=== PATIENT | female | born 1970 | race Caucasian/White ===

== ENCOUNTER 2020-07-18 10:39 | Emergency (ER) | payer OTHER ==
--- NOTE | 2020-07-18 11:40 | EDM.PDOC ---
ED HPI GENERAL MEDICAL PROBLEM - General Chief Complaint: Gastrointestinal Problem Stated Complaint: BLEEDING FROM RECTUM Time Seen by Provider: 07/18/20 11:25 Source of Information: Reports: Patient History Limitations: Reports: No Limitations - History of Present Illness INITIAL COMMENTS - FREE TEXT/NARRATIVE: This 50 yo female patient reports to the ED due to several issues. The patient reports she has several broken teeth in her mouth preventing her from eating. The patient reports she did see the dentist last week, was started on Augmentin and has an appointment for extraction next Monday. The patient reports she has also had urinary frequency over the past 24 hours. The patient also reports she has had 3 bloody bowel movements today. The patient reports she does not have any previous similar episodes. The patient reports she has been taking Aleve, Tylenol and ibuprofen due to her dental pain. Onset: Today Duration: Constant Location: Reports: Abdomen (lower abdominal cramping) Quality: Reports: Ache Severity: Moderate Improves with: Reports: None Worsens with: Reports: None Context: Reports: Other Associated Symptoms: Reports: No Other Symptoms Abdominal Pain Score (Numeric/FACES): 2 - Related Data Allergies Allergy/AdvReac Type Severity Reaction Status Date / Time coconut Allergy Itching Verified 07/18/20 10:58 morphine Allergy Hives Verified 07/18/20 10:57 Home Meds: Home Meds Amoxicillin/Potassium Clav [Amox-Clav 875-125 mg Tablet] 1 tab PO BID 07/18/20 [History] Naproxen Sodium [Aleve] 440 mg PO ASDIRECTED PRN 07/18/20 [History] diphenhydrAMINE [Benadryl] 50 mg PO BID PRN 07/18/20 [History] hydroCHLOROthiazide [Hydrochlorothiazide] 12.5 mg PO DAILY 07/18/20 [History] Past Medical History HEENT History: Reports: Other (See Below) Other HEENT History: left ear plugged for 2-3 months Cardiovascular History: Reports: Hypertension Respiratory History: Reports: None Genitourinary History: Reports: None Musculoskeletal History: Reports: None Neurological History: Reports: Concussion, Head Trauma Psychiatric History: Reports: None, Depression Endocrine/Metabolic History: Reports: Obesity/BMI 30+ Hematologic History: Reports: None Immunologic History: Reports: None Oncologic (Cancer) History: Reports: None Dermatologic History: Reports: None - Infectious Disease History Infectious Disease History: Reports: Chicken Pox - Past Surgical History Head Surgeries/Procedures: Reports: None HEENT Surgical History: Reports: Tonsillectomy GI Surgical History: Reports: Bariatric Procedure Female Surgical History: Reports: Section, Endometrial Ablation Other Musculoskeletal Surgeries/Procedures:: ankles Social & Family History - Tobacco Use Tobacco Use Status *Q: Never Tobacco User Second Hand Smoke Exposure: No - Caffeine Use Caffeine Use: Reports: Soda - Recreational Drug Use Recreational Drug Use: No ED ROS GENERAL - Review of Systems Review Of Systems: Comprehensive ROS is negative, except as noted in HPI. ED EXAM, GI/ABD - Physical Exam Exam: See Below Exam Limited By: No Limitations General Appearance: Alert, WD/WN, Moderate Distress Eyes: Bilateral: Normal Appearance, EOMI Ears: Normal External Exam, Normal Canal, Hearing Grossly Normal, Normal TMs Nose: Normal Inspection, Normal Mucosa, No Blood Throat/Mouth: Normal Inspection, Normal Lips, Normal Teeth, Normal Gums, Normal Oropharynx, Normal Voice, No Airway Compromise Head: Atraumatic, Normocephalic Neck: Normal Inspection, Supple, Non-Tender, Full Range of Motion Respiratory/Chest: No Respiratory Distress, Lungs Clear, Normal Breath Sounds, No Accessory Muscle Use, Chest Non-Tender Cardiovascular: Normal Peripheral Pulses, Regular Rate, Rhythm, No Edema, No Gallop, No JVD, No Murmur, No Rub GI/Abdominal Exam: Normal Bowel Sounds, Soft, No Organomegaly, No Distention, No Abnormal Bruit, No Mass, Pelvis Stable, Tender (lower abdomen) (Female) Exam: Deferred Rectal (Female) Exam: Deferred Back Exam: Normal Inspection, Full Range of Motion, NT Extremities: Normal Inspection, Normal Range of Motion, Non-Tender, Normal Capillary Refill, No Pedal Edema Neurological: Alert, Oriented, CN II-XII Intact, Normal Cognition, Normal Gait, Normal Reflexes, No Motor/Sensory Deficits Psychiatric: Normal Affect, Normal Mood Skin Exam: Warm, Dry, Intact, Normal Color, No Rash Lymphatic: No Adenopathy Course - Vital Signs Last Recorded V/S: Last Vital Signs Temp 36.5 C 07/18/20 10:50 Pulse 136 H 07/18/20 10:50 Resp 16 07/18/20 10:50 BP 130/98 H 07/18/20 11:16 Pulse Ox 100 07/18/20 10:50 - Orders/Labs/Meds Labs: Laboratory Tests 07/18/20 07/18/20 07/18/20 Range/Units 11:12 11:37 11:37 WBC 10.7 H (5.0-10.0) 10^3/uL RBC 4.08 L (4.2-5.4) 10^6/uL Hgb 13.1 (12.0-16.0) g/dL Hct 40.1 (37.0-47.0) % MCV 98.3 (80-100) fL MCH 32.1 (27.0-34.0) pg MCHC 32.7 L (33.0-35.0) g/dL Plt Count 250 (150-450) 10^3/uL Neut % (Auto) 70.9 (42.2-75.2) % Lymph % (Auto) 16.8 L (20.5-50.1) % [place] % (Auto) 10.5 H (2-8) % Eos % (Auto) 1.2 (1.0-3.0) % Baso % (Auto) 0.6 (0.0-1.0) % Sodium 137 (136-145) mmol/L Potassium 4.8 (3.5-5.1) mmol/L Chloride 98 (98-107) mmol/L Carbon Dioxide 29 (21-32) mmol/L Anion Gap 14.8 H (7-13) mEq/L BUN 16 (7-18) mg/dL Creatinine 1.07 H (0.55-1.02) mg/dL Est Cr Clr Drug Dosing 49.20 mL/min Estimated GFR (MDRD) 54 BUN/Creatinine Ratio 15.0 (No establ ref range) Glucose 107 H (74-99) mg/dL Lactic Acid (0.4-2.0) mmol/L Calcium 9.2 (8.5-10.1) mg/dL Total Bilirubin 1.8 H (0.2-1.0) mg/dL AST 63 H (15-37) U/L ALT 53 (14-59) U/L Alkaline Phosphatase 175 H (46-116) U/L Total Protein 8.1 (6.4-8.2) g/dL Albumin 3.3 L (3.4-5.0) g/dL Globulin 4.8 Albumin/Globulin Ratio 0.69 Urine Color Dark yellow (YELLOW) Urine Appearance Clear (CLEAR) Urine pH 6.0 (5.0-9.0) Ur Specific [place] 1.020 (1.005-1.030) Urine Protein 100 H (NEGATIVE) Urine Glucose (UA) Negative (NEGATIVE) Urine Ketones Trace H (NEGATIVE) Urine Occult Blood Trace-intact H (NEGATIVE) Urine Nitrite Negative (NEGATIVE) Urine Bilirubin Small H (NEGATIVE) Urine Urobilinogen 0.2 (0.2-1.0) mg/dL Ur Leukocyte Esterase Negative (NEGATIVE) U Hyaline Cast (Auto) Moderate Urine RBC 0-5 /HPF Urine WBC 0-5 (0-5/HPF) /HPF Ur Epithelial Cells Moderate H (NOT SEEN) /HPF Urine Bacteria Few (0-FEW/HPF) /HPF Urine Mucus Few H (NOT SEEN) /LPF Urine Other See note 07/18/20 Range/Units 11:37 WBC (5.0-10.0) 10^3/uL RBC (4.2-5.4) 10^6/uL Hgb (12.0-16.0) g/dL Hct (37.0-47.0) % MCV (80-100) fL MCH (27.0-34.0) pg MCHC (33.0-35.0) g/dL Plt Count (150-450) 10^3/uL Neut % (Auto) (42.2-75.2) % Lymph % (Auto) (20.5-50.1) % [place] % (Auto) (2-8) % Eos % (Auto) (1.0-3.0) % Baso % (Auto) (0.0-1.0) % Sodium (136-145) mmol/L Potassium (3.5-5.1) mmol/L Chloride (98-107) mmol/L Carbon Dioxide (21-32) mmol/L Anion Gap (7-13) mEq/L BUN (7-18) mg/dL Creatinine (0.55-1.02) mg/dL Est Cr Clr Drug Dosing mL/min Estimated GFR (MDRD) BUN/Creatinine Ratio (No establ ref range) Glucose (74-99) mg/dL Lactic Acid 1.9 (0.4-2.0) mmol/L Calcium (8.5-10.1) mg/dL Total Bilirubin (0.2-1.0) mg/dL AST (15-37) U/L ALT (14-59) U/L Alkaline Phosphatase (46-116) U/L Total Protein (6.4-8.2) g/dL Albumin (3.4-5.0) g/dL Globulin Albumin/Globulin Ratio Urine Color (YELLOW) Urine Appearance (CLEAR) Urine pH (5.0-9.0) Ur Specific [place] (1.005-1.030) Urine Protein (NEGATIVE) Urine Glucose (UA) (NEGATIVE) Urine Ketones (NEGATIVE) Urine Occult Blood (NEGATIVE) Urine Nitrite (NEGATIVE) Urine Bilirubin (NEGATIVE) Urine Urobilinogen (0.2-1.0) mg/dL Ur Leukocyte Esterase (NEGATIVE) U Hyaline Cast (Auto) Urine RBC /HPF Urine WBC (0-5/HPF) /HPF Ur Epithelial Cells (NOT SEEN) /HPF Urine Bacteria (0-FEW/HPF) /HPF Urine Mucus (NOT SEEN) /LPF Urine Other Departure - Departure Time of Disposition: 12:31 Disposition: DC/Tfer to [facility] 02 Condition: Fair Clinical Impression: GI bleed due to NSAIDs - Discharge Information *PRESCRIPTION DRUG MONITORING PROGRAM REVIEWED*: Not Applicable *COPY OF PRESCRIPTION DRUG MONITORING REPORT IN PATIENT RAHEEM: Not Applicable Forms: Interfacility Transfer EMTALA Care Plan Goals: Discussed the patient's history, examination and lab results with Dr. Kebede (Hospitalist with [facility] in [place]). Dr. Kebede accepted the patient for continued evaluation and management. The patient will be transported by [facility]. Sepsis Event Note (ED) - Evaluation Sepsis Screening Result: No Definite Risk - Focused Exam Vital Signs: Vital Signs Temp Pulse Resp BP Pulse Ox 07/18/20 11:16 130/98 H 07/18/20 10:50 36.5 C 136 H 16 135/107 H 100
[2020-07-18 12:02] LABS: ANION GAP 14.8 mEq/L (7-13)
== END 2020-07-18 13:02 ==
LOC: DL.ED 10:39
DX: K92.2 Gastrointestinal hemorrhage, unspecified (principal); T39.395A Adverse effect of other nonsteroidal anti-inflammatory drugs [NSAID], initial encounter; I10 Essential (primary) hypertension; E66.9 Obesity, unspecified; Z68.34 Body mass index [BMI] 34.0-34.9, adult; Z88.5 Allergy status to narcotic agent; Z91.018 Allergy to other foods; Z79.899 Other long term (current) drug therapy
CPT/HCPCS: 36415; 80053; 81001; 82272; 83605; 85025; 99284

== ENCOUNTER 2021-10-11 14:18 | Emergency (ER) | payer MEDICAID, OTHER ==
[2021-10-11 17:46] LABS: ANION GAP 13.9 mEq/L (7-13)
[2021-10-11] MEDS ORDERED: Iopamidol 612 MG/ML 100 ML Bottle IVPUSH ONE (17:56)
[2021-10-11] MEDS ORDERED: Potassium Chloride Riders 50 ML ONE ×2 (19:00→20:04)
[2021-10-11] MEDS: Potassium Chloride 10 MEQ in Premix Bag 1 BAG IV ONE ×2 (19:05→19:10)
[2021-10-11] MEDS ORDERED: Sodium Chloride 0.9% 1,000 ML IV ONE (19:18)
[2021-10-11] MEDS ORDERED: Magnesium Sulfate/Water 2 GM in Premix Bag 1 BAG IV ONE (19:57)
[2021-10-11] MEDS ORDERED: Potassium Chloride 10 MEQ in Premix Bag 1 BAG IV ONE (19:57)
== END 2021-10-12 00:45 ==
LOC: DL.ED 14:18
DX: K76.89 Other specified diseases of liver (principal); D69.6 Thrombocytopenia, unspecified; E80.7 Disorder of bilirubin metabolism, unspecified; E87.6 Hypokalemia; E83.42 Hypomagnesemia; F10.10 Alcohol abuse, uncomplicated; I10 Essential (primary) hypertension; K21.9 Gastro-esophageal reflux disease without esophagitis; E66.9 Obesity, unspecified; Z91.018 Allergy to other foods; Z91.048 Other nonmedicinal substance allergy status; Z88.5 Allergy status to narcotic agent; Z20.822 Contact with and (suspected) exposure to COVID-19; Z68.34 Body mass index [BMI] 34.0-34.9, adult
CPT/HCPCS: 36415; 74177; 80053; 80143; 80307; 81003; 82140; 82150; 83605; 83690; 83735; 85025; 93005; 96365; 96366; 99285-25; J3475; J3480; J7030; Q9967; U0002

== ENCOUNTER 2021-11-13 11:11 | Emergency (ER) | payer MEDICAID | END 2021-11-13 12:36 | disposition home or self-care (01) | LOC: DL.ED 11:11 | DX: B02.9 Zoster without complications (principal); I10 Essential (primary) hypertension; K21.9 Gastro-esophageal reflux disease without esophagitis; E66.9 Obesity, unspecified; Z88.5 Allergy status to narcotic agent; Z91.018 Allergy to other foods; Z88.8 Allergy status to other drugs, medicaments and biological substances; Z79.899 Other long term (current) drug therapy; Z68.38 Body mass index [BMI] 38.0-38.9, adult | CPT/HCPCS: 99282 ==

== ENCOUNTER 2021-11-24 09:06 | Inpatient (IN) | payer MEDICAID ==
[2021-11-24] MEDS: Sodium Chloride 0.9% 10 ML Syringe FLUSH PRN ×2 (10:10→20:20)
[2021-11-24 10:28] LABS: ANION GAP 12.5 mEq/L (7-13); CHLORIDE,CL 104 mmol/L (98-107); SODIUM,NA 140 mmol/L (136-145)
[2021-11-24 10:34] LABS: ESTIMATED GFR 107 mL/min (>=60)
[2021-11-24 11:01] LABS: CORONAVIRUS COVID-19 NAA NEGATIVE (NEGATIVE)
[2021-11-24] MEDS ORDERED: Iopamidol 612 MG/ML 100 ML Bottle IVPUSH ONE (11:20)
[2021-11-24] MEDS ORDERED: Iopamidol 755 Mg/ML 100 ML Bottle IVPUSH ONE (11:32)
[2021-11-24] MEDS ORDERED: cefTRIAXone 2 GM in Sodium Chloride 0.9% 100 ML IV ONE (12:58)
[2021-11-24 14:22] LABS: AMPHETAMINES,URINE NEGATIVE (NEGATIVE); BARBITURATES,URINE NEGATIVE (NEGATIVE); BENZODIAZEPINE,URINE NEGATIVE (NEGATIVE); MDMA (ECSTASY), URINE NEGATIVE (NEGATIVE); METHADONE,URINE NEGATIVE (NEGATIVE); METHAMPHETAMINES,URINE NEGATIVE (NEGATIVE); OPIATES,URINE NEGATIVE (NEGATIVE); OXYCODONE,URINE NEGATIVE (NEGATIVE); PHENCYCLIDINE,URINE NEGATIVE (NEGATIVE); TCA,URINE NEGATIVE (NEGATIVE)
[2021-11-24] MEDS ORDERED: Zolpidem 5 MG Tab PO PRN (16:31)
[2021-11-24] MEDS ORDERED: hydrALAZINE 20 MG/ML SDV IVPUSH PRN (16:31)
[2021-11-24] MEDS ORDERED: Albuterol/Ipratropium 3.0-0.5 MG/3 ML Neb Soln NEB PRN (16:31)
[2021-11-24] MEDS ORDERED: HYDROmorphone 0.5 MG/0.5 ML Syringe IVPUSH PRN (16:31)
[2021-11-24] MEDS ORDERED: Metoprolol Tartrate 5 MG/5 ML SDV IVPUSH PRN (16:31)
[2021-11-24] MEDS ORDERED: Albumin Human 50 GM in Premix Bag 1 BAG IV ONE (16:40)
[2021-11-24] MEDS ORDERED: diphenhydrAMINE 25 MG Tab PO PRN (16:43)
[2021-11-24] MEDS: Furosemide 100 MG in Sodium Chloride 0.9% 90 ML IV SCH (17:32)
[2021-11-24] MEDS: Acetaminophen 325 MG Tab PO PRN (17:40)
[2021-11-24] MEDS ORDERED: Ampicillin/Sulbactam Na 3 GM in Sodium Chloride 0.9% 100 ML IV SCH (18:00)
[2021-11-24] MEDS ORDERED: Magnesium Sulfate/Water 2 GM in Premix Bag 1 BAG IV ONE ×2 (18:45→22:00)
[2021-11-24] MEDS: Ondansetron 4 MG/2 ML SDV IVPUSH PRN (19:57)
[2021-11-24] MEDS: Sodium Chloride 0.9% 1,000 ML IV SCH (20:09)
[2021-11-24] MEDS: Saccharomyces Boulardii (Probiotic) 250 MG Cap PO SCH (20:50)
[2021-11-24] MEDS: Spironolactone 25 MG Tab PO SCH (20:50)
[2021-11-24] MEDS: Multivitamins with Iron/Calcium/Folic Acid/Minerals Tab PO SCH (20:51)
[2021-11-24] MEDS: Thiamine 100 MG Tab PO SCH (20:51)
[2021-11-24] MEDS: Folic Acid 1 MG Tab PO SCH (20:51)
[2021-11-24] MEDS: Ampicillin/Sulbactam Na 3 GM in Sodium Chloride 0.9% 100 ML IV SCH (20:51)
[2021-11-24] MEDS ORDERED: Potassium Chloride 10 MEQ Tab.ER PO ONE (21:00)
[2021-11-24] MEDS: Promethazine 25 MG/ML SDV IM PRN (21:02)
[2021-11-25] MEDS: Ampicillin/Sulbactam Na 3 GM in Sodium Chloride 0.9% 100 ML IV SCH ×4 (02:47→20:18)
[2021-11-25] MEDS: Ondansetron 4 MG/2 ML SDV IVPUSH PRN (02:56)
[2021-11-25] MEDS: Acetaminophen 325 MG Tab PO PRN ×4 (02:57→20:16)
[2021-11-25] MEDS ORDERED: Magnesium Sulfate/Water 2 GM in Premix Bag 1 BAG IV ONE (07:28)
[2021-11-25] MEDS: Pantoprazole 40 MG Tab.CR PO SCH ×2 (07:46→16:41)
[2021-11-25] MEDS ORDERED: Phytonadione 5 MG in Sodium Chloride 0.9% 50 ML IV SCH (09:00)
[2021-11-25] MEDS: FLUoxetine 10 MG Cap PO SCH (09:03)
[2021-11-25] MEDS: Saccharomyces Boulardii (Probiotic) 250 MG Cap PO SCH ×2 (09:03→20:17)
[2021-11-25] MEDS: Phytonadione 5 MG Tab PO SCH (09:04)
[2021-11-25] MEDS: Spironolactone 25 MG Tab PO SCH ×2 (09:04→20:17)
[2021-11-25] MEDS: Enoxaparin 40 MG/0.4 ML Syringe SUBCUT SCH (09:05)
[2021-11-25] MEDS: Promethazine 25 MG/ML SDV IM PRN (09:12)
[2021-11-25] MEDS ORDERED: Gabapentin 100 MG Cap PO ONE (11:00)
[2021-11-25] MEDS: Capsaicin 0.025% Cream TOP SCH ×3 (11:15→21:22)
[2021-11-25] MEDS: Multivitamins with Iron/Calcium/Folic Acid/Minerals Tab PO SCH (20:17)
[2021-11-25] MEDS: Thiamine 100 MG Tab PO SCH (20:17)
[2021-11-25] MEDS: Gabapentin 100 MG Cap PO SCH (20:17)
[2021-11-25] MEDS: Folic Acid 1 MG Tab PO SCH (20:18)
[2021-11-25] MEDS: Melatonin 3 MG Tab PO PRN (21:20)
[2021-11-25] MEDS: Furosemide 100 MG in Sodium Chloride 0.9% 90 ML IV SCH (21:40)
[2021-11-26] MEDS: Ampicillin/Sulbactam Na 3 GM in Sodium Chloride 0.9% 100 ML IV SCH ×2 (03:06→08:01)
[2021-11-26] MEDS: Pantoprazole 40 MG Tab.CR PO SCH ×2 (05:06→15:30)
[2021-11-26] MEDS: Phytonadione 5 MG Tab PO SCH (08:02)
[2021-11-26] MEDS: Spironolactone 25 MG Tab PO SCH ×2 (08:03→21:44)
[2021-11-26] MEDS: FLUoxetine 10 MG Cap PO SCH (08:03)
[2021-11-26] MEDS: Saccharomyces Boulardii (Probiotic) 250 MG Cap PO SCH ×2 (08:03→21:44)
[2021-11-26] MEDS: Gabapentin 100 MG Cap PO SCH ×2 (08:03→21:44)
[2021-11-26] MEDS: Enoxaparin 40 MG/0.4 ML Syringe SUBCUT SCH (08:04)
[2021-11-26] MEDS: Capsaicin 0.025% Cream TOP SCH ×3 (08:04→21:59)
[2021-11-26] MEDS: Sodium Chloride 0.9% 1,000 ML IV SCH (08:09)
[2021-11-26] MEDS ORDERED: Ergocalciferol (Vitamin D2) 1.25 MG Cap PO SCH (09:00)
[2021-11-26] MEDS ORDERED: Magnesium Sulfate/Water 50 ML ONE (09:37)
[2021-11-26] MEDS: Magnesium Sulfate/Water 2 GM in Premix Bag 1 BAG IV SCH ×2 (09:44→21:52)
[2021-11-26] MEDS ORDERED: Acetaminophen/Butalbital/Caffeine 325-50-40 MG Tab ONE (09:49)
[2021-11-26] MEDS: Acetaminophen/Butalbital/Caffeine 325-50-40 MG Tab PO PRN ×2 (09:52→20:07)
[2021-11-26 12:34] LABS: ANION GAP 9.4 mEq/L (7-13)
[2021-11-26] MEDS: cefTRIAXone 1 GM in Sodium Chloride 0.9% 50 ML IV SCH (12:55)
[2021-11-26] MEDS: Potassium Chloride 10 MEQ Tab.ER PO SCH ×2 (13:31→17:58)
[2021-11-26] MEDS: Folic Acid 1 MG Tab PO SCH (21:44)
[2021-11-26] MEDS: Thiamine 100 MG Tab PO SCH (21:44)
[2021-11-26] MEDS: Multivitamins with Iron/Calcium/Folic Acid/Minerals Tab PO SCH (21:44)
[2021-11-26] MEDS: Melatonin 3 MG Tab PO PRN (21:45)
[2021-11-27] MEDS: Melatonin 3 MG Tab PO PRN (00:14)
[2021-11-27] MEDS: Pantoprazole 40 MG Tab.CR PO SCH (06:39)
[2021-11-27 06:49] LABS: ANION GAP 9.7 mEq/L (7-13)
[2021-11-27] MEDS ORDERED: Furosemide 40 MG/4 ML VIAL IVPUSH ONE (08:58)
[2021-11-27] MEDS ORDERED: Albumin Human 50 GM in Premix Bag 1 BAG IV ONE (08:58)
[2021-11-27] MEDS: Gabapentin 100 MG Cap PO SCH (09:24)
[2021-11-27] MEDS: Spironolactone 25 MG Tab PO SCH (09:24)
[2021-11-27] MEDS: FLUoxetine 10 MG Cap PO SCH (09:25)
[2021-11-27] MEDS: Enoxaparin 40 MG/0.4 ML Syringe SUBCUT SCH (09:25)
[2021-11-27] MEDS: Saccharomyces Boulardii (Probiotic) 250 MG Cap PO SCH (09:25)
[2021-11-27] MEDS: Capsaicin 0.025% Cream TOP SCH (09:26)
[2021-11-27] MEDS: Phytonadione 5 MG Tab PO SCH (09:31)
[2021-11-27] MEDS: cefTRIAXone 1 GM in Sodium Chloride 0.9% 50 ML IV SCH (14:17)
== END 2021-11-27 12:17 | disposition home or self-care (01) | DRG 432 ==
LOC: DL.ED 09:06 → DL.MS 14:26
PROVIDERS: ADMIT Internal Medicine; ATTEND Internal Medicine
DX: K70.31 Alcoholic cirrhosis of liver with ascites (principal); K65.2 Spontaneous bacterial peritonitis; K72.00 Acute and subacute hepatic failure without coma; F10.288 Alcohol dependence with other alcohol-induced disorder; N39.0 Urinary tract infection, site not specified; Z68.41 Body mass index [BMI] 40.0-44.9, adult; K72.10 Chronic hepatic failure without coma; B96.1 Klebsiella pneumoniae [K. pneumoniae] as the cause of diseases classified elsewhere; Z20.822 Contact with and (suspected) exposure to COVID-19; D53.9 Nutritional anemia, unspecified; D69.59 Other secondary thrombocytopenia; R79.1 Abnormal coagulation profile; E66.01 Morbid (severe) obesity due to excess calories; B02.9 Zoster without complications; E55.9 Vitamin D deficiency, unspecified; E88.09 Other disorders of plasma-protein metabolism, not elsewhere classified; F32.9 Major depressive disorder, single episode, unspecified; H54.7 Unspecified visual loss; K21.9 Gastro-esophageal reflux disease without esophagitis; Z88.5 Allergy status to narcotic agent; Z91.018 Allergy to other foods; Z79.52 Long term (current) use of systemic steroids; Z79.899 Other long term (current) drug therapy
CPT/HCPCS: 0240U; 36415; 51701; 51702; 51703; 71045; 71260; 74177; 80048; 80053; 80076; 80305-QW; 81001; 82150; 82306; 82607; 82746; 83690; 83735; 83880; 84207; 84425; 84436; 84443; 85025; 85379; 85610; 85651; 86140; 87086; 87088; 87186; 96365; 97165-GO; 99285-25; A9270-GY; J0295; J0696; J1650; J1940; J2405; J2550; J3475; J3490; J7030; P9047; Q9967

== ENCOUNTER 2022-02-27 22:34 | Emergency (ER) | payer MEDICAID ==
[2022-02-27] MEDS ORDERED: Lidocaine 1% 10 ML MDV INJECT ONE (22:43)
[2022-02-27] MEDS ORDERED: Bacitracin Oint 1 GM U/D Packet TOP ONE (22:43)
[2022-02-27] MEDS ORDERED: Diphtheria,Pertussis(Acell),Tetanus Vaccine 0.5 ML Syringe ONE (23:42)
== END 2022-02-27 23:47 | disposition home or self-care (01) ==
LOC: DL.ED 22:34
DX: S02.2XXB Fracture of nasal bones, initial encounter for open fracture (principal); L56.8 Other specified acute skin changes due to ultraviolet radiation; F10.10 Alcohol abuse, uncomplicated; I10 Essential (primary) hypertension; E66.9 Obesity, unspecified; Z68.30 Body mass index [BMI] 30.0-30.9, adult; Z23 Encounter for immunization; Z91.018 Allergy to other foods; Z88.6 Allergy status to analgesic agent; Z91.030 Bee allergy status; Z79.899 Other long term (current) drug therapy; W18.39XA Other fall on same level, initial encounter
CPT/HCPCS: 12011; 70450; 72125; 99283

== ENCOUNTER 2022-11-26 13:33 | Emergency (ER) | payer MEDICAID ==
[2022-11-26] MEDS ORDERED: Take Home: Acetaminophen/HYDROcodone 325-5 MG, 5 Tab Pack PO ONE (14:29)
== END 2022-11-26 15:20 | disposition home or self-care (01) ==
LOC: DL.ED 13:33
DX: S82.62XA Displaced fracture of lateral malleolus of left fibula, initial encounter for closed fracture (principal); I10 Essential (primary) hypertension; K21.9 Gastro-esophageal reflux disease without esophagitis; E66.9 Obesity, unspecified; Z68.32 Body mass index [BMI] 32.0-32.9, adult; Z91.018 Allergy to other foods; Z88.5 Allergy status to narcotic agent; Z91.038 Other insect allergy status; Z79.899 Other long term (current) drug therapy; X50.1XXA Overexertion from prolonged static or awkward postures, initial encounter
CPT/HCPCS: 73610; 99283; A9270

== ENCOUNTER 2023-07-06 21:03 | Inpatient (IN) | payer MEDICAID ==
[2023-07-06] MEDS: Sodium Chloride 0.9% 10 ML Syringe FLUSH PRN (21:15)
[2023-07-06 21:21] LABS: APPEARANCE,URINE SLIGHTLY CLOUDY (CLEAR); BILIRUBIN,URINE LARGE (NEGATIVE); COLOR,URINE DARK YELLOW (YELLOW); GLUCOSE,URINE 100 (NEGATIVE); KETONES,URINE TRACE (NEGATIVE); LEUKOCYTE ESTERASE,URINE SMALL (NEGATIVE); NITRITE,URINE NEGATIVE (NEGATIVE); OCCULT BLOOD,URINE TRACE-INTACT (NEGATIVE); PH,URINE 5.5 (5.0-9.0); PROTEIN,URINE 100 (NEGATIVE)
[2023-07-06 21:25] LABS: AMPHETAMINES,URINE NEGATIVE (NEGATIVE); BARBITURATES,URINE NEGATIVE (NEGATIVE); BENZODIAZEPINE,URINE NEGATIVE (NEGATIVE); MDMA (ECSTASY), URINE NEGATIVE (NEGATIVE); METHADONE,URINE NEGATIVE (NEGATIVE); METHAMPHETAMINES,URINE NEGATIVE (NEGATIVE); OPIATES,URINE NEGATIVE (NEGATIVE); OXYCODONE,URINE NEGATIVE (NEGATIVE); PHENCYCLIDINE,URINE NEGATIVE (NEGATIVE); TCA,URINE NEGATIVE (NEGATIVE)
[2023-07-06 21:26] LABS: HEMATOCRIT 28.6 % (37.0-47.0); HEMOGLOBIN 10.6 g/dL (12.0-16.0); MEAN CORPUSCULAR HEMOGLOBIN 33.2 pg (27.0-34.0); MEAN CORPUSCULAR HGB CONC 37.1 g/dL (33.0-35.0); MEAN CORPUSCULAR VOLUME 89.7 fL (80-100); PLATELET COUNT,PLT 117 10^3/uL (150-450); RED BLOOD CELL COUNT 3.19 10^6/uL (4.2-5.4); WHITE BLOOD CELL COUNT,WBC 13.7 10^3/uL (5.0-10.0)
[2023-07-06 21:27] LABS: BASOPHILS PERCENT AUTO 0.1 % (0.0-1.0); EOSINOPHILS PERCENT AUTO 0.1 % (1.0-3.0); LYMPHOCYTES PERCENT AUTO 3.9 % (20.5-50.1); MONOCYTES PERCENT AUTO 11.4 % (2-8); NEUTROPHILS PERCENT AUTO 84.5 % (42.2-75.2)
[2023-07-06 21:29] LABS: ACETAMINOPHEN 0 ug/mL (10-30 (Therapeutic)); ETHANOL BLOOD MEDICAL < 3 mg/dL (0); INR 3.3 (0.9-1.2)
[2023-07-06 21:32] LABS: WBC,URINE 20-30 /HPF (0-5/HPF)
[2023-07-06 21:33] LABS: BACTERIA,URINE MANY /HPF (0-FEW/HPF); EPITHELIAL CELLS,URINE MODERATE /HPF (NOT SEEN); GRANULAR CASTS,URINE OCCASIONAL; TRICHOMONAS,URINE PRESENT /HPF (NOT SEEN)
[2023-07-06 21:34] LABS: ALANINE AMINOTRANSFERASE,ALT 386 U/L (14-59); ALBUMIN 2.5 g/dL (3.4-5.0); ALKALINE PHOSPHATASE 167 U/L (46-116); ANION GAP 22.3 mEq/L (7-13); BILIRUBIN TOTAL 23.6 mg/dL (0.2-1.0); BLOOD UREA NITROGEN,BUN 25 mg/dL (7-18); BUN/CREATININE RATIO 8.4 (No establ ref range); CARBON DIOXIDE,CO2 25 mmol/L (21-32); CHLORIDE,CL 58 mmol/L (98-107); CREATINE KINASE,CK 499 U/L (16-191); CREATININE 2.97 mg/dL (0.55-1.02); GLUCOSE RANDOM 159 mg/dL (70-99); LIPASE 54 U/L (16-77); POTASSIUM,K 4.3 mmol/L (3.5-5.1); PROTEIN TOTAL,TP 6.5 g/dL (6.4-8.2)
[2023-07-06 21:40] LABS: BAND PERCENT MAN 3 %; LYMPHOCYTES PERCENT MAN 5 % (20-50); MONOCYTES PERCENT MAN 6 % (2-8); SEG NEUTROPHILS PERCENT MAN 86 % (42-75)
[2023-07-06 21:41] LABS: A/G RATIO 0.63; ESTIMATED GFR 18 mL/min (>=60); SODIUM,NA 101 mmol/L (136-145)
[2023-07-06 21:42] LABS: ASPARTATE AMNIOTRANSFERASE,AST > 1000 U/L (15-37)
[2023-07-06 21:50] LABS: INFLUENZA A NAA NEGATIVE (NEGATIVE); INFLUENZA B NAA NEGATIVE (NEGATIVE); RESPIRATORY SYNCYTIAL VIR NAA NEGATIVE (NEGATIVE)
[2023-07-06] MEDS: Sodium Chloride 0.9% 1,000 ML IV SCH (22:10)
[2023-07-06 22:24] LABS: CORONAVIRUS COVID-19 NAA POSITIVE (NEGATIVE)
[2023-07-07] MEDS ORDERED: fentaNYL 100 MCG/2 ML SDV IVPUSH PRN (00:39)
[2023-07-07] MEDS ORDERED: Atropine 1% Ophth Soln 5 ML Bottle SL SCH (00:45)
[2023-07-07] MEDS ORDERED: Atropine 1% Ophth Soln 5 ML Bottle SL PRN ×2 (01:16→01:58)
[2023-07-07] MEDS: Scopalamine 1mg/3day Transdermal Patch TOP ONE (01:23)
[2023-07-07] MEDS: LORazepam 2 MG/ML SDV IVPUSH PRN (01:24)
== END 2023-07-07 03:40 | disposition expired | DRG 871 ==
LOC: DL.ED 21:03 → DL.MS 07-07 00:18 → UNDOADMIN 07-07 00:21 → DL.MS 07-07 00:21
PROVIDERS: ADMIT Internal Medicine; ATTEND Internal Medicine
DX: A41.4 Sepsis due to anaerobes (principal); U07.1 COVID-19; N17.9 Acute kidney failure, unspecified; E87.1 Hypo-osmolality and hyponatremia; N39.0 Urinary tract infection, site not specified; D68.9 Coagulation defect, unspecified; E87.20 Acidosis, unspecified; M62.82 Rhabdomyolysis; G93.1 Anoxic brain damage, not elsewhere classified; K76.6 Portal hypertension; Z51.5 Encounter for palliative care; Z66 Do not resuscitate; R65.20 Severe sepsis without septic shock; I10 Essential (primary) hypertension; K21.9 Gastro-esophageal reflux disease without esophagitis; E66.9 Obesity, unspecified; E16.2 Hypoglycemia, unspecified; K72.90 Hepatic failure, unspecified without coma; K76.82 Hepatic encephalopathy; G62.9 Polyneuropathy, unspecified; F32.9 Major depressive disorder, single episode, unspecified; I95.9 Hypotension, unspecified; D50.9 Iron deficiency anemia, unspecified; E83.52 Hypercalcemia; D63.8 Anemia in other chronic diseases classified elsewhere; D69.6 Thrombocytopenia, unspecified; E88.09 Other disorders of plasma-protein metabolism, not elsewhere classified; F10.90 Alcohol use, unspecified, uncomplicated; A59.8 Trichomoniasis of other sites; K70.30 Alcoholic cirrhosis of liver without ascites; T68.XXXA Hypothermia, initial encounter; R73.9 Hyperglycemia, unspecified; Z88.5 Allergy status to narcotic agent; Z91.018 Allergy to other foods; Z79.899 Other long term (current) drug therapy; Z68.31 Body mass index [BMI] 31.0-31.9, adult; Z90.89 Acquired absence of other organs; Z98.84 Bariatric surgery status; Z98.891 History of uterine scar from previous surgery; Z98.890 Other specified postprocedural states; X31.XXXA Exposure to excessive natural cold, initial encounter
CPT/HCPCS: 0241U; 36415; 70450; 71045; 80053; 80143; 80179; 80305-QW; 80307; 81001; 82009; 82140; 82550; 82947; 83605; 83690; 84484; 85025; 85610; 87040; 87086; 93005; 93010; 96360; 99284; 99285-25; A9270-GY; J2060; J3490; J7030